=== PATIENT | female | born 1975 | race Caucasian/White ===

== ENCOUNTER 2020-10-01 10:38 | Emergency (ER) | payer OTHER ==
[2020-10-01] MEDS ORDERED: KETOROLAC 15 MG/ML 1 ML VIAL IM STA (11:00)
[2020-10-01] MEDS ORDERED: SODIUM CHLORIDE 0.9% 1,000 ML IV STA (11:00)
[2020-10-01] MEDS ORDERED: METOCLOPRAMIDE 5 MG/ML 2 ML VIAL IVP STA (11:02)
[2020-10-01] MEDS ORDERED: diphenhydrAMINE 50 MG/ML 1 ML VIAL IVP STA (11:02)
--- NOTE | 2020-10-01 11:02 | ED ---
General Adult HPI - General Chief complaint: Headache Stated complaint: Hot Flashes Time Seen by Provider: 10/01/20 10:46 Source: patient, EMS Mode of arrival: EMS Limitations: no limitations - History of Present Illness Initial comments: 44-year-old female with a past medical history of asthma presents to the emergency room for a chief complaint of not feeling well. Patient reports that since yesterday she has felt hot all over her body. States that this has not happened before. Patient states she actually feels cold right now. Patient has not had any fevers. Patient does have a headache states she gets "all the time." This headache is consistent with previous headaches. Gradual onset. No worst pain at sudden onset. Patient denies neck stiffness.patient denies any nausea vomiting diarrhea or abdominal pain. Denies cough congestion sore throat. Patient has no other complaints at this time including shortness of breath, chest pain, abdominal pain, nausea or vomiting, headache, or visual changes. - Related Data Home Medications Medication Instructions Recorded Confirmed ARIPiprazole [Abilify] 10 mg PO DAILY 01/15/17 10/01/20 Methylphenidate HCl [Ritalin] 20 mg PO BID 01/15/17 10/01/20 QUEtiapine FUMARATE [SEROquel] 400 mg PO HS 01/15/17 10/01/20 lamoTRIgine [LaMICtal] 100 mg PO HS 04/05/19 10/01/20 Albuterol Sulfate [Proair Hfa] 1 - 2 puff INHALATION RT-Q4H PRN 10/01/20 10/01/20 EPINEPHrine (Auto Inject) [Epipen] 0.3 mg IM ONCE PRN 10/01/20 10/01/20 HYDROcodone/APAP 7.5-325MG [[place] 1 tab PO Q8H PRN 10/01/20 10/01/20 7.5-325] Montelukast [Singulair] 10 mg PO DAILY 10/01/20 10/01/20 Ondansetron [Zofran] 4 mg PO TID PRN 10/01/20 10/01/20 SUMAtriptan succinate [Imitrex] 50 mg PO DAILY PRN 10/01/20 10/01/20 Triamcinolone 0.1% Ointment 1 applic TOPICAL BID PRN 10/01/20 10/01/20 [Kenalog 0.1% Ointment] hydrOXYzine HCL [Atarax] 25 mg PO TID PRN 10/01/20 10/01/20 Allergies Allergy/AdvReac Type Severity Reaction Status Date / Time duloxetine [From Cymbalta] AdvReac Abdominal Verified 10/01/20 11:22 Pain Review of Systems ROS Statement: Those systems with pertinent positive or pertinent negative responses have been documented in the HPI. ROS Other: All systems not noted in ROS Statement are negative. Past Medical History Past Medical History: Asthma Additional Past Medical History / Comment(s): back pain History of Any Multi-Drug Resistant Organisms: None Reported Past Surgical History: Section, Orthopedic Surgery Additional Past Surgical History / Comment(s): left knee, left shoulder Past Psychological History: No Psychological Hx Reported Smoking Status: Former smoker Past Alcohol Use History: None Reported Past Drug Use History: None Reported General Exam Limitations: no limitations General appearance: alert, in no apparent distress Head exam: Present: atraumatic, normocephalic, normal inspection Eye exam: Present: normal appearance, PERRL, EOMI. Absent: scleral icterus, conjunctival injection, periorbital swelling ENT exam: Present: normal exam, mucous membranes moist Neck exam: Present: normal inspection, full ROM. Absent: tenderness, meningismus, lymphadenopathy Respiratory exam: Present: normal lung sounds bilaterally. Absent: respiratory distress, wheezes, rales, rhonchi, stridor Cardiovascular Exam: Present: regular rate, normal rhythm, normal heart sounds. Absent: bradycardia, tachycardia GI/Abdominal exam: Present: soft, normal bowel sounds. Absent: distended, tenderness, guarding, rebound, rigid Neurological exam: Present: alert, oriented X3 Course Vital Signs 10/01/20 10/01/20 10:43 11:54 Temperature 97.7 F 97.7 F Pulse Rate 63 76 Respiratory 16 16 Rate Blood Pressure 143/106 138/62 O2 Sat by Pulse 98 98 Oximetry Medical Decision Making - Medical Decision Making Vitals are stable. CBC CMP unremarkable. TSH and free T4 are both low suggesting hypothyroidism. Patient likely needs further workup for this. I do not feel the hypothyroidism as the cause of patient's feelings of hot flashes given this is not consistent with low thyroid state. Patient's hot flashes could be related to menopausal symptoms and she needs to monitor them over the weekend. If symptoms are worsening he should return and otherwise follow-up with primary care on Saturday. May require hormone levels to be checked. At this time patient is stable and feeling better. Her is in the room as well. She is comfortable with discharge home. - Lab Data Result diagrams: 10/01/20 11:12 10/01/20 11:12 Lab Results 10/01/20 10/01/20 Range/Units 11:12 11:12 WBC 9.4 (3.8-10.6) k/uL RBC 4.96 (3.80-5.40) m/uL Hgb 15.9 (11.4-16.0) gm/dL Hct 46.2 H (34.0-46.0) % MCV 93.3 (80.0-100.0) fL MCH 32.0 (25.0-35.0) pg MCHC 34.4 (31.0-37.0) g/dL RDW 13.0 (11.5-15.5) % Plt Count 258 (150-450) k/uL MPV 7.3 Neutrophils % 69 % Lymphocytes % 21 % Monocytes % 5 % Eosinophils % 3 % Basophils % 1 % Neutrophils # 6.4 (1.3-7.7) k/uL Lymphocytes # 2.0 (1.0-4.8) k/uL Monocytes # 0.5 (0-1.0) k/uL Eosinophils # 0.3 (0-0.7) k/uL Basophils # 0.1 (0-0.2) k/uL Sodium 137 (137-145) mmol/L Potassium 4.6 (3.5-5.1) mmol/L Chloride 110 H (98-107) mmol/L Carbon Dioxide 16 L (22-30) mmol/L Anion Gap 11 mmol/L BUN 11 (7-17) mg/dL Creatinine 0.79 (0.52-1.04) mg/dL Est GFR (CKD-EPI)AfAm >90 (>60 ml/min/1.73 sqM) Est GFR (CKD-EPI)NonAf >90 (>60 ml/min/1.73 sqM) Glucose 112 H (74-99) mg/dL Calcium 9.0 (8.4-10.2) mg/dL Total Bilirubin 0.5 (0.2-1.3) mg/dL AST 30 (14-36) U/L ALT 45 H (4-34) U/L Alkaline Phosphatase 66 (38-126) U/L Total Protein 6.8 (6.3-8.2) g/dL Albumin 4.0 (3.5-5.0) g/dL TSH 0.037 L (0.465-4.680) mIU/L Free T4 0.66 L (0.78-2.19) ng/dL Disposition Clinical Impression: Hypothyroid, Hot flashes Disposition: HOME SELF-CARE Condition: Good Instructions (If sedation given, give patient instructions): Hypothyroidism (ED) Additional Instructions: Please follow-up with your doctor on Saturday and discuss your labs including your thyroid labs. Monitor symptoms over the weekend. If they're worsening you can return to the emergency room. Otherwise follow-up on Saturday. Is patient prescribed a controlled substance at d/c from ED?: No Referrals: Pop Schwartz MD [Primary Care Provider] - 1-2 days Time of Disposition: 12:55
[2020-10-01 11:32] LABS: ALT 45 U/L (4-34); AST 30 U/L (14-36); African American GFR (CKD) >90 (>60 ml/min/1.73 sqM); Alkaline Phosphatase 66 U/L (38-126); Anion Gap 11 mmol/L; Blood Urea Nitrogen 11 mg/dL (7-17); Carbon Dioxide 16 mmol/L (22-30); Chloride 110 mmol/L (98-107); Glucose 112 mg/dL (74-99); Non-African American GFR(CKD) >90 (>60 ml/min/1.73 sqM); Potassium 4.6 mmol/L (3.5-5.1); Sodium 137 mmol/L (137-145); Total Bilirubin 0.5 mg/dL (0.2-1.3); Total Protein 6.8 g/dL (6.3-8.2)
[2020-10-01 11:48] LABS: Basophils # (A) 0.1 k/uL (0-0.2); Basophils % (A) 1 %; Eosinophils # (A) 0.3 k/uL (0-0.7); Eosinophils % (A) 3 %; HCT 46.2 % (34.0-46.0); HGB 15.9 gm/dL (11.4-16.0); Lymphocytes % (A) 21 %; MCHC 34.4 g/dL (31.0-37.0); MCV 93.3 fL (80.0-100.0); Mean Platelet Volume 7.3; Monocytes # (A) 0.5 k/uL (0-1.0); Monocytes % (A) 5 %; Neutrophils # (A) 6.4 k/uL (1.3-7.7); Neutrophils % (A) 69 %; Platelet Count 258 k/uL (150-450); RBC 4.96 m/uL (3.80-5.40); WBC 9.4 k/uL (3.8-10.6)
[2020-10-01 12:31] LABS: T4, Free (Free Thyroxine) 0.66 ng/dL (0.78-2.19)
[2020-10-01 13:25] VITALS: BP 129/77; PULSE 73; RESP 18; TEMP 98
== END 2020-10-01 13:20 | disposition home or self-care (01) ==
LOC: EC 10:38
DX: E03.9 Hypothyroidism, unspecified (principal); N95.1 Menopausal and female climacteric states; J45.909 Unspecified asthma, uncomplicated; M54.9 Dorsalgia, unspecified; Z79.899 Other long term (current) drug therapy; Z88.8 Allergy status to other drugs, medicaments and biological substances; Z87.891 Personal history of nicotine dependence
CPT/HCPCS: 36415; 84439; 80053; 84443; 85025; 99284; 96374; 96375; 96361; 96372; J1200; J2765; J1885

== ENCOUNTER 2021-09-25 23:02 | Emergency (ER) | payer OTHER ==
[2021-09-25 23:09] VITALS: BP 150/87; PULSE 99; RESP 20; TEMP 97.9
[2021-09-26] MEDS ORDERED: LIDOCAINE 1% INJ 10MG/ML (20 ML MDV) SQ ONE (00:27)
[2021-09-26] MEDS ORDERED: LORazepam 2 MG/ML INJ IM STA (00:48)
[2021-09-26] MEDS ORDERED: LIDOCAINE/EPINEPHR/TETRACAINE 5 ML BOTTLE TOPICAL ONE (00:48)
[2021-09-26] MEDS ORDERED: DIPH,PERTUS(ACELL)TETVAC-LF 0.5 ML VIAL IM ONE (01:54)
--- NOTE | 2021-09-26 02:11 | ED ---
Wound/Laceration HPI - General Chief Complaint: Wound/Laceration Stated Complaint: RT hand lac Time Seen by Provider: 09/25/21 23:46 Source: patient Mode of arrival: ambulatory Limitations: no limitations - History of Present Illness Initial Comments: Patient is a 45-year-old female presenting with CC of right hand laceration. The laceration is located at the junction of the hand and fourth finger. About 20 minutes before arrival she cut her hand with a knife while trying to separate frozen chicken. She immediately rinsed the area with cold water, applied pressure and wrapped the hand. Patient denies loss of range of motion, numbness, tingling, loss of sensation, weakness. Patient does not remember when last tetanus shot was. - Related Data Home Medications Medication Instructions Recorded Confirmed ARIPiprazole [Abilify] 10 mg PO DAILY 01/15/17 10/01/20 Methylphenidate HCl [Ritalin] 20 mg PO BID 01/15/17 10/01/20 QUEtiapine FUMARATE [SEROquel] 400 mg PO HS 01/15/17 10/01/20 lamoTRIgine [LaMICtal] 100 mg PO HS 04/05/19 10/01/20 Albuterol Sulfate [Proair Hfa] 1 - 2 puff INHALATION RT-Q4H PRN 10/01/20 10/01/20 EPINEPHrine (Auto Inject) [Epipen] 0.3 mg IM ONCE PRN 10/01/20 10/01/20 HYDROcodone/APAP 7.5-325MG [[place] 1 tab PO Q8H PRN 10/01/20 10/01/20 7.5-325] Montelukast [Singulair] 10 mg PO DAILY 10/01/20 10/01/20 Ondansetron [Zofran] 4 mg PO TID PRN 10/01/20 10/01/20 SUMAtriptan succinate [Imitrex] 50 mg PO DAILY PRN 10/01/20 10/01/20 Triamcinolone 0.1% Ointment 1 applic TOPICAL BID PRN 10/01/20 10/01/20 [Kenalog 0.1% Ointment] hydrOXYzine HCL [Atarax] 25 mg PO TID PRN 10/01/20 10/01/20 Previous Rx's Medication Instructions Recorded Cephalexin [Keflex] 500 mg PO Q12HR 5 Days #10 cap 09/26/21 Allergies Allergy/AdvReac Type Severity Reaction Status Date / Time duloxetine [From Cymbalta] AdvReac Abdominal Verified 09/25/21 23:05 Pain Review of Systems ROS Statement: Those systems with pertinent positive or pertinent negative responses have been documented in the HPI. ROS Other: All systems not noted in ROS Statement are negative. Past Medical History Past Medical History: Asthma Additional Past Medical History / Comment(s): back pain History of Any Multi-Drug Resistant Organisms: None Reported Past Surgical History: Section, Orthopedic Surgery Additional Past Surgical History / Comment(s): left knee, left shoulder Past Psychological History: No Psychological Hx Reported Smoking Status: Current every day smoker Past Alcohol Use History: None Reported Past Drug Use History: None Reported General Exam Limitations: no limitations General appearance: alert, in no apparent distress Head exam: Present: atraumatic, normocephalic, normal inspection Eye exam: Present: normal appearance, PERRL, EOMI. Absent: scleral icterus, conjunctival injection, periorbital swelling Neck exam: Present: normal inspection Extremities exam: Present: full ROM, normal capillary refill. Absent: calf tenderness Right Hand Wrist exam: Present: full ROM, tenderness, laceration, erythema Neuro motor exam: Present: fingers 2-5 abduction intact Neurosensory exam: Present: other (No sensory deficits) Neurological exam: Present: alert, oriented X3, CN II-XII intact Psychiatric exam: Present: normal affect, normal mood Skin exam: Present: warm, dry. Absent: rash Course Vital Signs 09/25/21 23:06 Temperature 97.9 F Pulse Rate 99 Respiratory 20 Rate Blood Pressure 150/87 O2 Sat by Pulse 99 Oximetry Procedures - Laceration Laceration #1 Consent Obtained: verbal consent, emergent situation Indication: laceration Site: hand Size (cm): 3 Description: linear Depth: simple, single layer Sedation/Analgesia: midazolam (used 1mg IM ativan) Anesthetic Used: lidocaine 1%, without epi Anesthesia Technique: local infiltration Pre-repair: wound explored, irrigated extensively Type of Sutures: nylon Size of Sutures: 4-0 Number of Sutures: 4 Technique: simple, interrupted Patient Tolerated Procedure: well, no complications Medical Decision Making - Medical Decision Making Pt presented with CC of R hand laceration, located at the junction of the hand and 4th digit. Wound was determined to need repair via sutures. Pt required the use of 1mg IM ativan due to fear of needles and difficulty cooperating with the procedure. LET solution was applied. 4 simple, interrupted sutures were applied after the wound was irrigated with sterile water and explored for foreign body or tendon involvement, both of which were negative. Pt was given tdap booster. 500mg Keflex BID x 5 days was prescribed, sutures may be removed in 10-14 days. Answered all questions. Return to ER if experiencing worsening symptoms or new onset symptoms. Patient conveyed verbal understanding and was in agreement with the plan. Disposition Clinical Impression: Laceration Disposition: HOME SELF-CARE Condition: Good Instructions (If sedation given, give patient instructions): Laceration (DC), Moderate Sedation (ED), Stitches Removal (ED) Additional Instructions: Follow up with PCP in 1 week. Return to ER with worsening symptoms Prescriptions: Cephalexin [Keflex] 500 mg PO Q12HR 5 Days #10 cap Is patient prescribed a controlled substance at d/c from ED?: No Referrals: Pop Schwartz MD [Primary Care Provider] - 1-2 days Time of Disposition: 02:11
== END 2021-09-26 02:23 | disposition home or self-care (01) ==
LOC: EC 23:02
DX: S61.411A Laceration without foreign body of right hand, initial encounter (principal); J45.909 Unspecified asthma, uncomplicated; F17.200 Nicotine dependence, unspecified, uncomplicated; W26.0XXA Contact with knife, initial encounter
CPT/HCPCS: 99282; 90471; 12002; 90715; J2060; J2001

== ENCOUNTER 2023-12-06 18:28 | Emergency (ER) | payer OTHER ==
--- NOTE | 2023-12-06 19:34 | ED ---
General Adult HPI - General Chief complaint: Seizure Stated complaint: Unresponsive episode Time Seen by Provider: 12/06/23 19:01 Source: patient, family, EMS, RN notes reviewed Mode of arrival: EMS Limitations: altered mental status - History of Present Illness Initial comments: Patient is a 48-year-old female present to the emergency department for episode of altered mental status. Patient was at the [employer] store. Patient suddenly became unresponsive and was shaking for around 2 minutes. Patient was unresponsive for around 3 minutes following that. Patient states she did lose a tooth. Patient otherwise feels fine at this point and has no other complaints. No history of previous seizure. Female patient admits to using "ice " - Related Data Home Medications Medication Instructions Recorded Confirmed ARIPiprazole [Abilify] 10 mg PO DAILY 01/15/17 10/01/20 Methylphenidate HCl [Ritalin] 20 mg PO BID 01/15/17 10/01/20 QUEtiapine FUMARATE [SEROquel] 400 mg PO HS 01/15/17 10/01/20 lamoTRIgine [LaMICtal] 100 mg PO HS 04/05/19 10/01/20 Albuterol Sulfate [Proair Hfa] 1 - 2 puff INHALATION RT-Q4H PRN 10/01/20 10/01/20 EPINEPHrine (Auto Inject) [Epipen] 0.3 mg IM ONCE PRN 10/01/20 10/01/20 HYDROcodone/APAP 7.5-325MG [[place] 1 tab PO Q8H PRN 10/01/20 10/01/20 7.5-325] Montelukast [Singulair] 10 mg PO DAILY 10/01/20 10/01/20 Ondansetron [Zofran] 4 mg PO TID PRN 10/01/20 10/01/20 SUMAtriptan succinate [Imitrex] 50 mg PO DAILY PRN 10/01/20 10/01/20 Triamcinolone 0.1% Ointment 1 applic TOPICAL BID PRN 10/01/20 10/01/20 [Kenalog 0.1% Ointment] hydrOXYzine HCL [Atarax] 25 mg PO TID PRN 10/01/20 10/01/20 Previous Rx's Medication Instructions Recorded Cephalexin [Keflex] 500 mg PO Q12HR 5 Days #10 cap 09/26/21 Penicillin V Potassium [Pen Vee K] 500 mg PO QID #40 tablet 12/06/23 Allergies Allergy/AdvReac Type Severity Reaction Status Date / Time duloxetine [From Cymbalta] AdvReac Abdominal Verified 09/25/21 23:05 Pain Review of Systems ROS Statement: Those systems with pertinent positive or pertinent negative responses have been documented in the HPI. ROS Other: All systems not noted in ROS Statement are negative. Constitutional: Denies: fever Eyes: Denies: eye pain ENT: Denies: ear pain Respiratory: Denies: dyspnea Cardiovascular: Denies: chest pain Neurological: Reports: as per HPI. Denies: headache Past Medical History Past Medical History: Asthma Additional Past Medical History / Comment(s): back pain History of Any Multi-Drug Resistant Organisms: None Reported Past Surgical History: Section, Orthopedic Surgery Additional Past Surgical History / Comment(s): left knee, left shoulder Past Psychological History: No Psychological Hx Reported Smoking Status: Current every day smoker Past Alcohol Use History: None Reported Past Drug Use History: None Reported General Exam Limitations: no limitations General appearance: alert, in no apparent distress Head exam: Present: atraumatic, normocephalic Eye exam: Present: normal appearance, PERRL, EOMI ENT exam: Present: other (Poor dentition. Probable acute near complete tooth avulsion left upper central incisor) Neck exam: Present: normal inspection. Absent: tenderness Respiratory exam: Present: normal lung sounds bilaterally Cardiovascular Exam: Present: regular rate, normal rhythm GI/Abdominal exam: Present: soft. Absent: tenderness Extremities exam: Present: normal inspection Neurological exam: Present: alert, oriented X3, CN II-XII intact. Absent: motor sensory deficit Expanded Neurological exam: Present: protecting the airway Speech: Present: fluid speech Cranial nerves: EOM's Intact: Normal Motor strength exam: RUE: 5, LUE: 5, RLE: 5, LLE: 5 Eye Response: (4) open spontaneously Motor Response: (6) obeys commands Verbal Response: (5) oriented Psychiatric exam: Present: normal affect, normal mood Skin exam: Present: normal color Course Vital Signs 12/06/23 12/06/23 12/06/23 18:32 19:49 20:20 Pulse Rate 95 84 73 Respiratory 18 18 16 Rate Blood Pressure 139/81 139/81 120/81 O2 Sat by Pulse 96 96 97 Oximetry EKG Findings - EKG Results: EKG: interpreted by ERMD, sinus rhythm, normal axis, normal QRS, normal ST/T Medical Decision Making - Medical Decision Making Was pt. sent in by a medical professional or institution (, SHAILA, ENGINEER OF SYSTEM DEVELOPMENT, urgent care, hospital, or longterm...) When possible be specific @ -No Did you speak to anyone other than the patient for history (EMS, parent, family, police, friend...)? What history was obtained from this source @ -Male accompanying patient helps provide history as patient does not recall the episode Did you review nursing and triage notes (agree or disagree)? Why? @ -I reviewed and agree with nursing and triage notes Were old charts reviewed (outside hosp., previous admission, EMS record, old EKG, old radiological studies, urgent care reports/EKG's, longterm records)? Report findings @ -No old charts were reviewed Differential Diagnosis (chest pain, altered mental status, abdominal pain women, abdominal pain men, vaginal bleeding, weakness, fever, dyspnea, syncope, headache, dizziness, GI bleed, back pain, seizure, CVA, palpatations, mental health, musculoskeletal)? @ -Differential Seizure: Recurrent seizure disorder, febrile seizure, alcohol withdrawal, stimulants, meningitis, encephalitis, intercranial hemorrhage, intracranial tumor, stroke, eclampsia, thyrotoxicosis, hypocalcemia, hyponatremia, hypernatremia, hypomagnesemia, psychogenic, this is not meant to be an all-inclusive list. EKG interpreted by me (3pts min.). @ -As above X-rays interpreted by me (1pt min.). @ -None done CT interpreted by me (1pt min.). @ -CT brain does not reveal acute abnormality U/S interpreted by me (1pt. min.). @ -None done What testing was considered but not performed or refused? (CT, X-rays, U/S, labs)? Why? @ -None What meds were considered but not given or refused? Why? @ -None Did you discuss the management of the patient with other professionals (professionals i.e. SHAILA Hankins, ENGINEER OF SYSTEM DEVELOPMENT, lab, RT, psych nurse, social studies department chair, line service technician, teacher, commercial credit officer, major case detective)? Give summary @ -No Was smoking cessation discussed for >3mins.? @ -No Was critical care preformed (if so, how long)? @ -No Were there social determinants of health that impacted care today? How? (Homelessness, low income, unemployed, alcoholism, drug addiction, transportation, low edu. Level, literacy, decrease access to med. care, halfway, rehab)? @ -No Was there de-escalation of care discussed even if they declined (Discuss DNR or withdrawal of care, Hospice)? DNR status @ -No What co-morbidities impacted this encounter? (DM, HTN, Smoking, COPD, CAD, Cancer, CVA, ARF, Chemo, Hep., AIDS, mental health diagnosis, sleep apnea, morbid obesity)? @ -None Was patient admitted / discharged? Hospital course, mention meds given and route, prescriptions, significant lab abnormalities, going to OR and other pertinent info. @ -Patient presents with new onset seizure. Patient does admit to using drugs. Patient is advised against this. Patient will be discharged pending rad iologist interpretation of CT Undiagnosed new problem with uncertain prognosis? @ -No Drug Therapy requiring intensive monitoring for toxicity (Heparin, Nitro, Insulin, Cardizem)? @ -No Were any procedures done? @ -No Diagnosis/symptom? @ -Seizure, new onset, dental avulsion Acute, or Chronic, or Acute on Chronic? @ -Acute, acute Uncomplicated (without systemic symptoms) or Complicated (systemic symptoms)? @ -Default Side effects of treatment? @ -No Exacerbation, Progression, or Severe Exacerbation? @ -No Poses a threat to life or bodily function? How? (Chest pain, [place], [place], pneumonia, PE, COPD, DKA, ARF, appy, cholecystitis, CVA, Diverticulitis, Homicidal, Suicidal, threat to staff... and all critical care pts) @ -No - Lab Data Result diagrams: 12/06/23 19:49 12/06/23 19:49 Lab Results 12/06/23 12/06/23 Range/Units 19:49 19:49 WBC 8.3 (3.8-10.6) k/uL RBC 4.12 (3.80-5.40) m/uL Hgb 13.6 (11.4-16.0) gm/dL Hct 39.2 (34.0-46.0) % MCV 95.1 (80.0-100.0) fL MCH 33.0 (25.0-35.0) pg MCHC 34.7 (31.0-37.0) g/dL RDW 14.2 (11.5-15.5) % Plt Count 252 (150-450) k/uL MPV 8.2 Neutrophils % 66 % Lymphocytes % 23 % Monocytes % 6 % Eosinophils % 3 % Basophils % 1 % Neutrophils # 5.4 (1.3-7.7) k/uL Lymphocytes # 1.9 (1.0-4.8) k/uL Monocytes # 0.5 (0-1.0) k/uL Eosinophils # 0.3 (0-0.7) k/uL Basophils # 0.1 (0-0.2) k/uL Sodium 138 (137-145) mmol/L Potassium 3.9 (3.5-5.1) mmol/L Chloride 113 H (98-107) mmol/L Carbon Dioxide 16 L (22-30) mmol/L Anion Gap 9 mmol/L BUN 14 (7-17) mg/dL Creatinine 0.78 (0.52-1.04) mg/dL Est GFR (CKD-EPI)AfAm >90 (>60 ml/min/1.73 sqM) Est GFR (CKD-EPI)NonAf >90 (>60 ml/min/1.73 sqM) Glucose 104 H (74-99) mg/dL Calcium 9.4 (8.4-10.2) mg/dL Magnesium 2.2 (1.6-2.3) mg/dL Total Bilirubin 0.7 (0.2-1.3) mg/dL AST 28 (14-36) U/L ALT 22 (4-34) U/L Alkaline Phosphatase 69 (38-126) U/L Total Protein 7.2 (6.3-8.2) g/dL Albumin 4.2 (3.5-5.0) g/dL Serum Alcohol <10 mg/dL Disposition Clinical Impression: New onset seizure Disposition: HOME SELF-CARE Condition: Stable Instructions (If sedation given, give patient instructions): Seizure/Epilepsy Discharge Instructions & Follow-Up Additional Instructions: No driving until 6 months seizure-free. Please do follow-up with primary care physician in the next day or 2 for recheck. Consider neurology follow-up. Return for increased seizures, fever, confusion or weakness, worsening symptoms or any other concerns. Avoid all drugs. Prescription for antibiotics has been sent to pharmacy. Please do follow-up with dentist beginning of the week. Prescriptions: Penicillin V Potassium [Pen Vee K] 500 mg PO QID #40 tablet Is patient prescribed a controlled substance at d/c from ED?: No Referrals: Valentina Najera MD [Primary Care Provider] - 1-2 days
[2023-12-06 20:18] LABS: Basophils # (A) 0.1 k/uL (0-0.2); Basophils % (A) 1 %; Eosinophils # (A) 0.3 k/uL (0-0.7); Eosinophils % (A) 3 %; HCT 39.2 % (34.0-46.0); HGB 13.6 gm/dL (11.4-16.0); Lymphocytes # (A) 1.9 k/uL (1.0-4.8); Lymphocytes % (A) 23 %; MCHC 34.7 g/dL (31.0-37.0); MCV 95.1 fL (80.0-100.0); Mean Platelet Volume 8.2; Monocytes # (A) 0.5 k/uL (0-1.0); Monocytes % (A) 6 %; Neutrophils # (A) 5.4 k/uL (1.3-7.7); Neutrophils % (A) 66 %; Platelet Count 252 k/uL (150-450); RBC 4.12 m/uL (3.80-5.40); RDW 14.2 % (11.5-15.5); WBC 8.3 k/uL (3.8-10.6)
[2023-12-06 20:31] LABS: ALT 22 U/L (4-34); AST 28 U/L (14-36); African American GFR (CKD) >90 (>60 ml/min/1.73 sqM); Albumin 4.2 g/dL (3.5-5.0); Alcohol <10 mg/dL; Alkaline Phosphatase 69 U/L (38-126); Anion Gap 9 mmol/L; Blood Urea Nitrogen 14 mg/dL (7-17); Calcium 9.4 mg/dL (8.4-10.2); Carbon Dioxide 16 mmol/L (22-30); Chloride 113 mmol/L (98-107); Glucose 104 mg/dL (74-99); Magnesium 2.2 mg/dL (1.6-2.3); Non-African American GFR(CKD) >90 (>60 ml/min/1.73 sqM); Sodium 138 mmol/L (137-145); Total Bilirubin 0.7 mg/dL (0.2-1.3); Total Protein 7.2 g/dL (6.3-8.2)
[2023-12-06 20:37] LABS: Potassium 3.9 mmol/L (3.5-5.1)
[2023-12-06] MEDS: ACET/COD 300 MG/30 MG STARTER PACK 6 TAB BTL PO STA (21:46)
[2023-12-06 22:08] LABS: Appearance,Urine Cloudy (Clear); Bacteria,Urine Occasional /hpf; Bilirubin,Urine Negative (Negative); Blood,Urine Negative (Negative); Color,Urine Yellow; Glucose,Urine (UA) Negative (Negative); Hyaline Casts,Urine 1 /lpf (0-2); Ketones,Urine Trace (Negative); Leukocyte Esterase,Urine Negative (Negative); Mucus,Urine Few /hpf; Nitrite,Urine Negative (Negative); Protein,Urine 1+ (Negative); RBC,Urine 2 /hpf (0-5); Specific Gravity,Urine 1.032 (1.001-1.035); Squamous Epithelial Cell,Urine 26 /hpf (0-4); Urobilinogen,Urine <2.0 mg/dL (<2.0); WBC,Urine 4 /hpf (0-5)
[2023-12-06 22:15] LABS: Cocaine Screen,Urine Not Detected (NotDetected); Opiate Screen,Urine Not Detected (NotDetected); Phencyclidine Screen,Urine Not Detected (NotDetected); Urn Cannabinoid Scrn Not Detected (NotDetected)
[2023-12-06 22:16] LABS: Amphetamine Screen,Urine Detected (NotDetected); Barbiturate Screen,Urine Not Detected (NotDetected); Benzodiazepines Screen,Urine Not Detected (NotDetected); Methadone Screen, Urine Not Detected (NotDetected); Oxycodone Screen, Urine Not Detected (NotDetected); Tricyclic Antidepressant,Urine Not Detected (NotDetected)
--- NOTE | 2023-12-06 22:26 | CT ---
EXAMINATION TYPE: CT brain wo con CT DLP: 1066.5 mGycm, Automated exposure control for dose reduction was used. DATE OF EXAM: 12/06/2023 8:12 PM COMPARISON: None.. CLINICAL INDICATION:Female, 48 years old with history of seizure activity, Seizure activity. TECHNIQUE: Brain: Axial CT images of the brain were obtained with coronal and sagittal reformats created and rev iewed. Contrast used: None. Oral contrast used: None. FINDINGS: Extra-axial spaces: No abnormal extra-axial fluid collections. Basilar cisterns are patent. Ventricular system: Within normal limits. Cerebral parenchyma: No increased attenuation to suggest acute intraparenchymal hemorrhage. The gra y-white matter interface appears maintained. No significant atrophy. White matter unremarkable by C T. Cerebellum: No acute abnormality. Mass effect: No evidence of mass effect or midline shift. Intracranial vasculature: Unremarkable Soft tissues: No acute or concerning abnormality. Visualized orbits: Orbital contents appear grossly intact. Calvarium/osseous structures: No evidence of calvarial fracture. Paranasal sinuses and mastoid air cells: Clear. MRI is more sensitive for detecting acute processes such as infarct, and may be considered if clinica lly warranted. IMPRESSION: No acute intracranial CT abnormality.
[2023-12-07 01:57] VITALS: BP 125/78; PULSE 75; RESP 18
== END 2023-12-07 01:20 | disposition home or self-care (01) ==
LOC: EC 18:28
DX: R56.9 Unspecified convulsions (principal); F17.200 Nicotine dependence, unspecified, uncomplicated; Z88.8 Allergy status to other drugs, medicaments and biological substances
CPT/HCPCS: 36415; 93005; 80053; 80175; 83735; 85025; 81001; 80306; 70450; 99285; G0480; 80320

== ENCOUNTER 2024-03-20 19:17 | Emergency (ER) | payer OTHER ==
[2024-03-20] MEDS ORDERED: HYDROmorphone 0.5 MG/0.5 ML SYRINGE ONE (20:42)
[2024-03-20] MEDS ORDERED: levETIRAcetam IV 500 MG/5 ML VIAL ONE (20:43)
[2024-03-20] MEDS ORDERED: SODIUM CHLORIDE 0.9% 1,000 ML BAG ONE (21:07)
[2024-03-20] MEDS ORDERED: TOPICAL SKIN ADHESIVE 1 EACH AMP TOPICAL ONE ×2 (21:07→22:16)
[2024-03-20] MEDS ORDERED: DIPH,PERTUS(ACELL)TETVAC-LF 0.5 ML VIAL IM ONE (22:16)
--- NOTE | 2024-05-07 18:28 | CT ---
EXAM: CT Head and Maxillofacial Without Intravenous Contrast CLINICAL HISTORY: Seizure. Lt eye edema TECHNIQUE: Axial computed tomography images of the head/brain and face without intravenous contrast. CTDI is 22.6 mGy and DLP is 612.25 mGy-cm. This CT exam was performed using one or more of the following dose reduction techniques: automated exposure control, adjustment of the mA and/or kV according to patient size, and/or use of iterative reconstruction technique. COMPARISON: No relevant prior studies available. FINDINGS: Bones/joints:No acute fracture. Soft tissues:Unremarkable. Sinuses:No acute sinusitis. Mastoid air cells:No mastoid effusion. Orbits: Left preseptal orbital soft tissue swelling. No post septal/retrobulbar process. IMPRESSION: Left preseptal cellulitis. Radiologist: Mary Rodas MD Electronically Signed: 03/21/24 02:48 Study first marked ready to read at 23:45, study last marked ready to read at 23:45, initial results transmitted at 02:48 MTDD
--- NOTE | 2024-05-07 18:29 | CT ---
EXAM: CT Head Without Intravenous Contrast CLINICAL HISTORY: Seizure. Lt eye edema TECHNIQUE: Axial computed tomography images of the head/brain without intravenous contrast. CTDI is 22.6 mGy and DLP is 612.25 mGy-cm. This CT exam was performed using one or more of the following dose reduction techniques: automated exposure control, adjustment of the mA and/or kV according to patient size, and/or use of iterative reconstruction technique. COMPARISON: No relevant prior studies available. FINDINGS: Brain:No hemorrhage or mass effect. Ventricles:No hydrocephalus. Bones/joints:Unremarkable. Soft tissues: Left periorbital soft tissue swelling. Sinuses:No air fluid level. Mastoid air cells:Clear. IMPRESSION: No acute hemorrhage, hydrocephalus, or mass effect. Left periorbital soft tissue swelling. Radiologist: Mary Rodas MD Electronically Signed: 03/21/24 01:24 Study first marked ready to read at 23:45, study last marked ready to read at 23:45, initial results transmitted at 01:24 [facility]
== END 2024-03-21 02:40 | disposition home or self-care (01) ==
LOC: EC 19:17
CPT/HCPCS: 70450; 70486; 90715; 93005; 96372; 96374; 96375; 99285